=== PATIENT | female | born 1985 | race Caucasian/White ===

== ENCOUNTER 2018-05-05 15:39 | Emergency (ER) | payer OTHER ==
[~2018-05-05] VITALS: Ht 162.6 cm; Wt 100.8 kg
[2018-05-05 16:10] VITALS: BP 113/67
--- NOTE | 2018-05-05 17:55 | NUR ---
PT AMBULATED TO BED 01.
--- NOTE | 2018-05-05 18:49 | NUR ---
BIB SELF TO HAVE WOUND FROM ABSCESS DRAINAGE @ [facility] 05/03/18 CHECKED. AAOX4 WITH EVEN AND STEADY GAIT; VSS; PATIENT POSITIONED FOR COMFORT; HOB ELEVATED; BEDRAILS UP X1; BED DOWN. ER MD MADE AWARE OF PT STATUS.
--- NOTE | 2018-05-05 19:12 | NUR ---
REPORT GIVEN TO DEMETRI FRIEDMAN
[2018-05-05] MEDS ORDERED: SULFAMETH/TRIMETH DS 800/160MG 1 TAB PO ONE (19:15)
[2018-05-05 19:44] VITALS: BP 111/71
--- NOTE | 2018-05-05 19:44 | NUR ---
PT STATES REDUCED PAIN 03/28. VSS. WOUND AREA UNDER LEFT AXILLARY INTACT. WELL APPROXIMATED. NO REDNESS. SCANT DRAINAGE. CLEANSED WITH NS. PAT DRY. NON-ADHESIVE DRSSING APPLIED. SECURED WITH PAPER TAPE. AFEBRILE. DISCHARGE INSTRUCTIONS PROVIDED. PT VERBALIZED UNDERSTANDING. QUESTIONS ANSWERED. MEDICATION CARD PROVIDED.
== END 2018-05-05 19:44 | disposition home or self-care (01) ==
LOC: MED 15:39
DX: L02.412 Cutaneous abscess of left axilla (principal)
CPT/HCPCS: 99283

== ENCOUNTER 2018-06-05 09:09 | Emergency (ER) | payer OTHER ==
[~2018-06-05] VITALS: Ht 165.1 cm; Wt 90.7 kg
[2018-06-05 09:12] VITALS: BP 119/79
--- NOTE | 2018-06-05 09:15 | NUR ---
Patient ambulated to bed 3. RN evaluating patient at bedside.
--- NOTE | 2018-06-05 09:20 | NUR ---
32/F BIB SELF WITH C/O COUGH WITH PHLEGM & BODYACHE X3 DAYS. DENIES N/V/D.PATIENT STATES PAIN OF 8/10 AT THIS TIME. PATIENT POSITIONED FOR COMFORT; HOB ELEVATED; BEDRAILS UP X2; BED DOWN. ER MD MADE AWARE OF PT STATUS.
[2018-06-05] MEDS ORDERED: hydrOXYzine HCL 25 MG TAB PO ONE (09:35)
[2018-06-05] MEDS ORDERED: KETOROLAC 60 MG/2 ML VIAL IM ONE (09:35)
[2018-06-05] MEDS ORDERED: DEXAMETHASONE 10 MG/ML VIAL IM ONE (09:35)
[2018-06-05] MEDS ORDERED: ALBUTEROL SULFATE/IPRATROPIU 3 ML SOL IH ONE (10:10)
--- NOTE | 2018-06-05 10:16 | NUR ---
RT AT BEDSIDE FOR BREATHING TREATMENT.
--- NOTE | 2018-06-05 10:28 | NUR ---
Patient being reevaluated by DR JONES at bedside.
[2018-06-05 11:08] VITALS: BP 117/71
--- NOTE | 2018-06-05 11:08 | NUR ---
Patient discharged with v/s stable. Written and verbal after care instructions given and explained. Patient alert, oriented and verbalized understanding of instructions. Ambulatory with steady gait. All questions addressed prior to discharge. ID band removed. Patient advised to follow up with PMD. Rx of AZITHROMYCIN, PREDNISONE & PROMETHAZINE given. Patient educated on indication of medication including possible reaction and side effects. Opportunity to ask questions provided and answered.
== END 2018-06-05 11:08 | disposition home or self-care (01) ==
LOC: MED 09:09
DX: J02.9 Acute pharyngitis, unspecified (principal); R09.82 Postnasal drip; Z91.09 Other allergy status, other than to drugs and biological substances
CPT/HCPCS: 81002; 81025; 87804; 94640; 96372; 99283; J1100; J1885; J7620